=== PATIENT | female | born 1970 | race American Indian/Alaskan Native ===

== ENCOUNTER 2020-09-20 09:28 | Inpatient (IN) ==
[2020-09-20] MEDS ORDERED: 0.9 % SODIUM CHLORIDE 1,000 ML IV ONE ×2 (09:52→13:47)
[2020-09-20] MEDS ORDERED: INSULIN REGULAR, HUMAN 1 UNIT/0.01 ML UNIT IV ONE (10:03)
[2020-09-20 10:13] LABS: POC CO2 18 mmol/L (22-30); POC Chloride 96 mEq/L (96-108); POC Creatinine 0.7 mg/dL (0.6-1.2); POC Glucose, Random > 700 mg/dL; POC Hematocrit 48 % (36-48); POC Potassium 4.1 mEql/L (3.3-5.1); POC Sodium 131 mEq/L (133-145)
[2020-09-20] MEDS ORDERED: INSULIN REGULAR, HUMAN 50 UNIT in 0.9 % SODIUM CHLORIDE 99.5 ML IV SCH (10:30)
--- NOTE | 2020-09-20 10:41 | EKG ---
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 Measurements Intervals Blanding Rate: 92 P: 42 [place]: 140 QRS: 82 QRSD: 93 T: 7 QT: 349 QTc: 432 Interpretive Statements Sinus rhythm Baseline wander in lead(s) V2,V6 NO PRIOR TRACING FOR COMPARISON NORMAL TRACING Electronically Signed On 09-20-2020 10:40:46 PDT by Kevon Whalen M.D. /store/[email or web address]/[id number]
[2020-09-20 10:46] LABS: Basophils # (Auto) 0.08 K/mcL (0.00-0.20); Basophils % (Auto) 0.6 % (0.0-2.0); Eosinophils # (Auto) 0.19 K/mcL (0.00-0.70); Eosinophils % (Auto) 1.5 % (0.0-7.0); Hematocrit 45.7 % (36.0-48.0); Hemoglobin 15.3 g/dL (12.0-15.0); Lymphocytes # (Auto) 1.95 K/mcL (1.50-4.80); Lymphocytes % (Auto) 15.7 % (15.0-49.0); Mean Cell Volume 83.2 fL (80.0-100.0); Mean Corpuscular HGB Conc 33.5 g/dL (31.0-36.0); Mean Platelet Volume 11.4 fL (7.4-10.4); Monocytes # (Auto) 0.58 K/mcL (0.10-0.90); Monocytes % (Auto) 4.7 % (1.0-12.0); Neutrophils % (Auto) 77.5 % (38.0-78.0); Platelet Count 300 K/mcL (140-440); RBC 5.49 M/mcL (4.00-5.20); Red Cell Distribution Width 13.1 % (11.5-14.5); WBC 12.5 K/mcL (4.5-11.0)
--- NOTE | 2020-09-20 10:52 | XRay Report ---
CLINICAL INFORMATION: Hyperventalation COMPARISON: None. FINDINGS: Heart size, mediastinum and pulmonary vessels are normal. There is minor bibasilar atelectasis. No infiltrates or effusions. Bones soft tissues normal. IMPRESSION: Minor bibasilar atelectasis Interpreted and Authenticated by: Power Davey 09/20/20
--- NOTE | 2020-09-20 11:22 | Emergency Department Note ---
HPI General Chief complaint: Blood Sugar Problem Stated complaint: blood sugar problem Time Seen by Provider: 09/20/20 10:02 Source: patient, RN notes reviewed and old records reviewed Mode of arrival: ambulatory Limitations: no limitations History of Present Illness HPI Narrative: Narrative: A 50-year-old female noted to have high blood sugar. Patient states that she has been feeling poorly for the last couple of months with polyuria polydipsia dehydration anorexia and occasional blurry vision. She has no past medical history of diabetes does have a past medical history of ankylosing spondylolysis and she is on Remicade. She denies tobacco alcohol or drug abuse she denies fevers or chills she denies cough she denies chest pain she denies abdominal pain she denies hematuria dysuria positive frequency no bright red blood per rectum black tarry stools or diarrhea. MD Complaint: High blood sugar Onset (ago): month(s) (2) Severity: severe Consistency: constant Improves with: medication Associated symptoms: Reports headaches, loss of appetite, malaise, nausea/vomiting, shortness of breath and weakness; Denies confusion, chest pain, cough, diaphoresis, fever/chills, rash, seizure and syncope Treatments Prior to Arrival: none Related Data Home Medications Medication Instructions Recorded Confirmed infliximab 100 mg intravenous IV .q6w each 05/06/19 09/14/20 solution acetaminophen [Tylenol] 325 mg PO BID PRN 09/20/20 09/20/20 Allergies Allergy/AdvReac Type Severity Reaction Status Date / Time gabapentin Allergy Unknown Other Verified 09/14/20 08:21 meperidine [MEPERIDINE] AdvReac Intermediate Tachycardia Verified 09/14/20 08:21 Review of Systems ROS ROS Narrative: Narrative: Constitutional: Reports weakness and weight change; Denies fever and chills Eyes: Reports vision change ENT ED: Denies ear pain and throat pain Cardiovascular: Reports palpitations; Denies chest pain Respiratory: Denies shortness of breath and cough Gastrointestinal: Reports nausea; Denies abdominal pain and vomiting Genitourinary: Reports frequency; Denies dysuria Musculoskeletal: Denies back pain and joint swelling Integumentary: Denies rash and lesions Neurological: Reports headache; Denies weakness Psychiatric: Denies anxiety and depression Endocrine: Reports fatigue, polydipsia and polyuria; Denies heat or cold intolerance Hematological/Lymphatic: Denies easy bleeding and easy bruising Allergic/Immunologic: Denies urticaria PFSH Narrative Patient History Narrative: Narrative: Medical/Surgical/Family History All Active Problems (Updated 09/20/20 @ 11:28 by Jan Byrne MD) Atopic dermatitis (Chronic) Right knee pain (Chronic) Murmur (Chronic) Breast lump (Chronic) Ankylosing spondylitis (Acute) Celiac disease (Chronic) Pain radiating to neck (Chronic) Obesity (Chronic) Microscopic hematuria (Chronic) Constipation (Chronic) Acute lower respiratory infection (Chronic) Bacterial vaginosis (Chronic) Shoulder pain (Chronic) Fibromyositis (Chronic) Encounter for long-term current use of high risk medication (Acute) Osteoarthritis (Acute) Back Pain (Chronic) Elevated ALT measurement (Acute) Ankylosing spondylitis of site in spine (Acute) Encounter for long-term (current) use of NSAIDs (Acute) Moderate major depression (Chronic) Vitamin D deficiency (Chronic) Occult blood in stools (Chronic) Acute lower urinary tract infection (Chronic) Fatigue (Chronic) Muscle strain of right shoulder (Chronic) Vaginitis (Chronic) Prediabetes (Chronic) Skin nodule (Chronic) Insomnia (Chronic) Snoring (Chronic) Sore throat (Chronic) Thoracic back pain (Chronic) Sleep apnea (Chronic) Wheezing (Chronic) Hypersomnia (Chronic) Interstitial lung disease (Chronic) GERD (gastroesophageal reflux disease) (Chronic) Restrictive lung disease (Chronic) Diarrhea (Acute) Dyspnea (Chronic) Liver enzyme elevation (Acute) DKA (diabetic ketoacidoses) (Acute) Medical History (Updated 09/20/20 @ 11:28 by Jan Byrne MD) Acute lower respiratory infection Acute lower urinary tract infection Ankylosing spondylitis Ankylosing spondylitis of site in spine Atopic dermatitis Back Pain Bacterial vaginosis Breast lump bx neg Celiac disease Constipation Elevated ALT measurement Encounter for long-term (current) use of NSAIDs Encounter for long-term current use of high risk medication Fatigue Fibromyositis GERD (gastroesophageal reflux disease) Hypersomnia Insomnia Interstitial lung disease Liver enzyme elevation Microscopic hematuria Moderate major depression Murmur Muscle strain of right shoulder Obesity Occult blood in stools Osteoarthritis Pain radiating to neck Prediabetes Restrictive lung disease Right knee pain Shoulder pain Skin nodule Sleep apnea Snoring Sore throat Thoracic back pain Vaginitis Vitamin D deficiency Wheezing Surgical History History of total left hip replacement Dr. Denson Hx of arthroscopic knee surgery Hx of breast biopsy Hx of section Hx of cholecystectomy Hx of colonoscopy Hx of esophagogastroduodenoscopy Hx of laparoscopy tubal block laparoscopy Family History Grandfather Diabetes mellitus maternal grandmother Malignant neoplasm maternal grandfather Malignant neoplasm Social History Smoking Status: Never smoker Alcohol Intake Frequency: holiday/special occasion only Exam Narrative Narrative: Narrative: General Limitations: no limitations General appearance: Present alert and in no apparent distress Head Head: Present atraumatic, normocephalic and normal inspection Eye Eye: Present normal appearance, PERRL and EOMI; Absent scleral icterus and conjunctival injection ENT ENT: Present normal exam, normal oropharynx and mucous membranes dry Neck Neck: Present normal inspection, full ROM and trachea midline; Absent tenderness, lymphadenopathy and thyromegaly Chest Chest: Present normal inspection and symmetric chest wall rise; Absent tendernes s Respiratory Respiratory: Present normal lung sounds bilaterally; Absent respiratory distress, wheezes, stridor, accessory muscle use and prolonged expiratory phase Cardiovascular Cardiovascular: Present regular rate and normal rhythm; Absent systolic murmur and diastolic murmur Adbominal Abdominal: Present soft; Absent distention, tenderness, guarding, rebound, rigidity, organomegaly and mass Extremities Extremities: Present normal inspection and full ROM; Absent tenderness, normal capillary refill, pedal edema, pretibial edema and calf tenderness Back Back: Present normal inspection and full ROM; Absent tenderness, CVA tenderness (R), CVA tenderness (L) and spinous process tenderness Neurological Neurological: Present alert and oriented X3 Psychiatric Psychiatric: Present normal affect and normal mood Skin Skin: Present warm (WNL) and dry Course Vital Signs Vital signs: Vital Signs Temperature 97.2 F 09/20/20 09:29 Pulse Rate 101 H 09/20/20 09:29 Respiratory Rate 22 09/20/20 09:29 Blood Pressure 133/74 09/20/20 09:29 Pulse Oximetry (%) 97 09/20/20 09:29 Temperature 97.2 F 09/20/20 09:29 Pulse Rate 102 H 09/20/20 10:49 Respiratory Rate 12 09/20/20 10:49 Blood Pressure 134/77 09/20/20 10:58 Pulse Oximetry (%) 96 09/20/20 10:49 MDM MDM Narrative Medical decision making narrative: Narrative: 50-year-old female with ankylosing spondylitis on Remicade with DKA. Patient received IV normal saline IV. Differential Diagnosis Differential Diagnosis: DKA, hyperosmolar, hyperglycemia, infection, Medical Records Medical records reviewed: Yes I reviewed the patient's medical records. Lab Data Lab results reviewed: Yes I reviewed the patient's lab results. Result diagrams: 09/20/20 10:00 09/20/20 10:00 Labs: Lab Results 09/20/20 09/20/20 Range/Units 10:00 10:00 WBC 12.5 H (4.5-11.0) K/mcL RBC 5.49 H (4.00-5.20) M/mcL Hgb 15.3 H (12.0-15.0) g/dL Hct 45.7 (36.0-48.0) % POC Hct 48 (36-48) % MCV 83.2 (80.0-100.0) fL MCH 27.9 (26.0-34.0) pg MCHC 33.5 (31.0-36.0) g/dL RDW 13.1 (11.5-14.5) % Plt Count 300 (140-440) K/mcL MPV 11.4 H (7.4-10.4) fL Neut % (Auto) 77.5 (38.0-78.0) % Lymph % (Auto) 15.7 (15.0-49.0) % [place] % (Auto) 4.7 (1.0-12.0) % Eos % (Auto) 1.5 (0.0-7.0) % Baso % (Auto) 0.6 (0.0-2.0) % Lymph # (Auto) 1.95 (1.50-4.80) K/mcL [place] # (Auto) 0.58 (0.10-0.90) K/mcL Eos # (Auto) 0.19 (0.00-0.70) K/mcL Baso # (Auto) 0.08 (0.00-0.20) K/mcL Absolute Neutrophils 9.65 H (1.80-8.00) K/mcL POC Sodium 131 L (133-145) mEq/L POC Potassium 4.1 (3.3-5.1) mEql/L POC Chloride 96 (96-108) mEq/L POC Total CO2 18 L (22-30) mmol/L POC Creatinine 0.7 (0.6-1.2) mg/dL POC Glucose > 700 H* mg/dL POC WB Ioniz Calcium 1.20 (1.16-1.32) mmEq/L ED POC Tests ED POC Tests: HCG POC Results Negative Radiology Data Radiology results reviewed: Yes I reviewed the patient's radiology results. Radiology results narrative: Chest x-ray with basilar atelectasis EKG Data EKG #1: EKG attestation: Yes I reviewed and interpreted this EKG. EKG shows normal: sinus rhythm Rate: normal (92) Rhythm: NSR [place]/QRS: normal Heart block present: None ST segment elevation in: None ST segment depression in: None Q waves: None T wave inversions noted in: None Hyperacute T waves: None QTc: normal QRS morphology: Present normal Interpretation: normal EKG Pulse Oximetry Data Pulse Ox %: 96 Interpretation: 96% on room air within normal limits. CC TIME Critical Care Time Critical Care Time: Yes Total Critical Care Time: 50 Attestation: Approximately [#50] minutes of critical care time was used in order to assess and manage the high probability of imminent or life threatening deterioration to [DKA with hyperglycemia affecting electrolytes and kidney function.] which required my highest level of preparedness and interventions with frequent patient assessments. This time is excluding time spent on separately billable procedures. Discharge Plan Patient/Caregiver Discharge Instructions Pt seen by DISCHARGE RN/PA only: No Clinical Impression: DKA (diabetic ketoacidoses) Patient Disposition: Xfer As Inpt ([facility] [place]) Condition: Serious Follow up with: Ivelisse Husain MD [Primary Care Provider] - Prescriptions: No Action Remicade 100 mg recon soln 100 mg IV .q6w RF: 0 acetaminophen [Tylenol] 325 mg Capsule 325 mg PO BID PRN (Reason: Pain) RF: 0
[2020-09-20 11:26] LABS: Blood Urea Nitrogen 10 mg/dL (6-20); Calcium 9.3 mg/dL (8.6-10.4); Carbon Dioxide 16 mmol/L (22-30); Chloride 88 mmol/L (96-108); Glomerular Filtration Rate 66; Glucose 710 mg/dL (70-105)
[2020-09-20] MEDS ORDERED: LORazepam 2 MG/ML VIAL IV ONE (12:08)
[2020-09-20 12:29] LABS: POC Blood Urea Nitrogen 8 mg/dL (6-20); POC CO2 16 mmol/L (22-30); POC Calcium, Ionized 1.16 mmEq/L (1.16-1.32); POC Chloride 103 mEq/L (96-108); POC Creatinine 0.6 mg/dL (0.6-1.2); POC Glucose, Random 425 mg/dL (70-105); POC Hematocrit 45 % (36-48); POC Potassium 3.8 mEql/L (3.3-5.1); POC Sodium 137 mEq/L (133-145)
--- NOTE | 2020-09-20 13:41 | Internal Med History&Physical ---
HPI History of Present Illness Patient information: Note initiated : 09/20/20 at 1:27 pm Service Date, if different from initiated Date: [] Patient: Amalia Harris a 50 y/o F admitted on for blood sugar problem. Chief Complaint: [] History of present illness: Ms. Harris is a 50 year old female with a history of ankylosing spondylitis on Remicade who presents to the emergency department for polydipsia, polyuria, dry mouth and generally feeling unwell for about 2 weeks. In the ED, the patient was found to have hyperglycemia with a serum glucose of 710. The patient also had metabolic acidosis with an anion gap of 23. She was given IV fluids and started on an insulin drip. The hospitalist were asked to admit the patient for further management. Further review showed that the patient has a pubic area of tenderness concerning for possible underlying abscess, she also has thrush. Patient denies fevers chills, no chest pain, no shortness of breath. EKG shows normal sinus rhythm. Chest x-ray does not show any infiltrates. Review of systems Constitutional: Positive for polydipsia, fatigue, and weight loss Eyes: no vision changes or pain Cardiovascular: no chest pain, no palpitations Respiratory: no cough or dyspnea Gastrointestinal: no abdominal pain, no diarrhea a Genitourinary: Positive for polyuria, no dysuria or difficulty voiding Musculoskeletal: no arthralgia or myalgia Integumentary: no skin lesion or wound Neurological: no focal weakness or numbness Psychiatric: no anxiety or depression Physical exam Head: Atraumatic, normal inspection. Eyes: normal appearance, no scleral icterus. Neck: full ROM Oral: Positive for thrush. Respiratory: no respiratory distress. Cardiovascular: normal rate and rhythm, S1, S2. GI/Abdominal: Positive for suprapubic erythema and tenderness, mild fluctuance noted. Extremities: full range of motion, nontender. Neurological: CN II-XII intact, intact motor, intact sensation. Psychiatric: normal mood. Skin: warm, normal color PFSH PFSH All Active Problems (Updated 09/20/20 @ 11:28 by Jan Byrne MD) Atopic dermatitis (Chronic) Right knee pain (Chronic) Murmur (Chronic) Breast lump (Chronic) Ankylosing spondylitis (Acute) Celiac disease (Chronic) Pain radiating to neck (Chronic) Obesity (Chronic) Microscopic hematuria (Chronic) Constipation (Chronic) Acute lower respiratory infection (Chronic) Bacterial vaginosis (Chronic) Shoulder pain (Chronic) Fibromyositis (Chronic) Encounter for long-term current use of high risk medication (Acute) Osteoarthritis (Acute) Back Pain (Chronic) Elevated ALT measurement (Acute) Ankylosing spondylitis of site in spine (Acute) Encounter for long-term (current) use of NSAIDs (Acute) Moderate major depression (Chronic) Vitamin D deficiency (Chronic) Occult blood in stools (Chronic) Acute lower urinary tract infection (Chronic) Fatigue (Chronic) Muscle strain of right shoulder (Chronic) Vaginitis (Chronic) Prediabetes (Chronic) Skin nodule (Chronic) Insomnia (Chronic) Snoring (Chronic) Sore throat (Chronic) Thoracic back pain (Chronic) Sleep apnea (Chronic) Wheezing (Chronic) Hypersomnia (Chronic) Interstitial lung disease (Chronic) GERD (gastroesophageal reflux disease) (Chronic) Restrictive lung disease (Chronic) Diarrhea (Acute) Dyspnea (Chronic) Liver enzyme elevation (Acute) DKA (diabetic ketoacidoses) (Acute) Medical History (Updated 09/20/20 @ 11:28 by Jan Byrne MD) Acute lower respiratory infection Acute lower urinary tract infection Ankylosing spondylitis Ankylosing spondylitis of site in spine Atopic dermatitis Back Pain Bacterial vaginosis Breast lump bx neg Celiac disease Constipation Elevated ALT measurement Encounter for long-term (current) use of NSAIDs Encounter for long-term current use of high risk medication Fatigue Fibromyositis GERD (gastroesophageal reflux disease) Hypersomnia Insomnia Interstitial lung disease Liver enzyme elevation Microscopic hematuria Moderate major depression Murmur Muscle strain of right shoulder Obesity Occult blood in stools Osteoarthritis Pain radiating to neck Prediabetes Restrictive lung disease Right knee pain Shoulder pain Skin nodule Sleep apnea Snoring Sore throat Thoracic back pain Vaginitis Vitamin D deficiency Wheezing Surgical History History of total left hip replacement Dr. Denson Hx of arthroscopic knee surgery Hx of breast biopsy Hx of section Hx of cholecystectomy Hx of colonoscopy Hx of esophagogastroduodenoscopy Hx of laparoscopy tubal block laparoscopy Family History Grandfather Diabetes mellitus maternal grandmother Malignant neoplasm maternal grandfather Malignant neoplasm Social History marital status: alcohol intake frequency: holiday/special occasion only MEDS/ALLERGIES Home Medications and Allergies Home Medications Medication Instructions Recorded Confirmed Type infliximab 100 mg intravenous 100 mg IV .q6w each 05/06/19 09/20/20 History solution acetaminophen [Tylenol] 325 mg PO BID PRN 09/20/20 09/20/20 History Allergies Allergy/AdvReac Type Severity Reaction Status Date / Time gabapentin Allergy Unknown Other Verified 09/14/20 08:21 meperidine [MEPERIDINE] AdvReac Intermediate Tachycardia Verified 09/14/20 08:21 EXAM Constitutional Vitals: Temp Pulse Resp BP Pulse Ox 97.2 F 89 20 124/74 96 09/20/20 09:29 09/20/20 11:46 09/20/20 12:46 09/20/20 12:46 09/20/20 11:46 DATA Data Completed and Pending Labs: Labs from last 24 hours 09/20/20 09/20/20 09/20/20 12:23 12:23 10:30 WBC RBC Hgb Hct POC Hct 45 MCV MCH MCHC RDW Plt Count MPV Neut % (Auto) Lymph % (Auto) [place] % (Auto) Eos % (Auto) Baso % (Auto) Lymph # (Auto) [place] # (Auto) Eos # (Auto) Baso # (Auto) Absolute Neutrophils VBG Lactic Acid 1.2 POC Sodium 137 Sodium POC Potassium 3.8 Potassium POC Chloride 103 Chloride Carbon Dioxide POC Total CO2 16 L Anion Gap POC BUN 8 BUN Creatinine POC Creatinine 0.6 GFR Calculation Glucose POC Glucose 425 H Calcium POC WB Ioniz Calcium 1.16 Beta-Hydroxybutyrate Pending 09/20/20 09/20/20 10:00 10:00 WBC 12.5 H RBC 5.49 H Hgb 15.3 H Hct 45.7 POC Hct 48 MCV 83.2 MCH 27.9 MCHC 33.5 RDW 13.1 Plt Count 300 MPV 11.4 H Neut % (Auto) 77.5 Lymph % (Auto) 15.7 [place] % (Auto) 4.7 Eos % (Auto) 1.5 Baso % (Auto) 0.6 Lymph # (Auto) 1.95 [place] # (Auto) 0.58 Eos # (Auto) 0.19 Baso # (Auto) 0.08 Absolute Neutrophils 9.65 H VBG Lactic Acid POC Sodium 131 L Sodium 127 L POC Potassium 4.1 Potassium 4.2 POC Chloride 96 Chloride 88 L Carbon Dioxide 16 L POC Total CO2 18 L Anion Gap 23.0 H POC BUN Pending BUN 10 Creatinine 1.0 POC Creatinine 0.7 GFR Calculation 66 Glucose 710 H* POC Glucose > 700 H* Calcium 9.3 POC WB Ioniz Calcium 1.20 Beta-Hydroxybutyrate A/P Narrative A/P Narrative: Assessment: 50-year-old female with history of ankylosing spondylitis on Remicade admitted for hyperglycemia and anion gap metabolic acidosis concerning for DKA. #Diabetic ketoacidosis versus less likely hyperosmolar hyperglycemic state #Anion gap metabolic acidosis #Diabetes mellitus probably type II, new diagnosis #Suprapubic tenderness possible cellulitis -concern for underlying abscess #Oral pharyngeal candidiasis #Hemoconcentration #Ankylosing spondylitis on Remicade #Obesity BMI 34 Plan -Insulin infusion, glucose POCT, BMP Q 4 hours. -IV fluid with NS for now, transition to D5 half NS if acidosis does not resolve by the time glucose is less than 200. -Blood cultures -UA w/ reflex to culture. -Beta hydroxybutyrate -Lactic acid -CRP and procalcitonin -Hemoglobin A1C -Low threshold for antibiotic for possible cellulitis/abscess. -Suprapubic ultrasound to evaluate for abscess. -Clotrimazole troches for thrush. -DVT ppx: lovenox SQ -Code status: Full -Disposition: home with PCP follow up for new diagnosis of diabetes mellitus. Time Spent With Patient Time: Total time spent is greater than 50% in coordination of care (as documented) at patient's floor/unit and/or counseling patient: QUALITY Stroke Symptom Onset Unknown: No
[2020-09-20] MEDS ORDERED: 0.9 % SODIUM CHLORIDE 1,000 ML IV SCH (13:47)
[2020-09-20] MEDS ORDERED: ONDANSETRON 4 MG/2 ML VIAL IV PRN (13:47)
[2020-09-20] MEDS ORDERED: LACTULOSE 20 GM/30 ML ORAL.SOL PO PRN (13:47)
[2020-09-20] MEDS ORDERED: SENNOSIDES 1 TABLET PO PRN (13:47)
[2020-09-20] MEDS ORDERED: ACETAMINOPHEN 325 MG TABLET PO PRN (13:49)
[2020-09-20] MEDS: INSULIN REGULAR, HUMAN 50 UNIT in 0.9 % SODIUM CHLORIDE 99.5 ML IV SCH ×2 (14:41→22:59)
[2020-09-20] MEDS: 0.9 % SODIUM CHLORIDE 10 ML SYRINGE IV SCH ×2 (14:53→22:18)
[2020-09-20] MEDS: CLOTRIMAZOLE 10 MG TROCHE PO SCH ×2 (15:03→17:45)
[2020-09-20 15:38] LABS: Blood Urea Nitrogen 7 mg/dL (6-20); Calcium 8.6 mg/dL (8.6-10.4); Carbon Dioxide 16 mmol/L (22-30); Chloride 100 mmol/L (96-108); Glomerular Filtration Rate 87; Glucose 362 mg/dL (70-105)
[2020-09-20 15:51] LABS: Estimated Average Glucose(eAG) 338 mg/dL; Hemoglobin A1C 13.4 % Hgb (4.0-6.0)
--- NOTE | 2020-09-20 16:26 | Ultrasound Report ---
CLINICAL INFORMATION: evaluate for abscess in pubic area COMPARISON: None. FINDINGS: A 1.2 cm small complex fluid collection is seen in the subcutaneous fat within the suprapubic region. This could represent a small abscess. IMPRESSION: 1.2 cm complex fluid collection in the suprapubic region corresponding to palpable lump. It may represent a small abscess Interpreted and Authenticated by: Power Davey 09/20/20
[2020-09-20 16:47] LABS: Appearance,Urine HAZY (Clear); Bilirubin,Urine Negative (Negative); Color,Urine YELLOW; Culture Indicated,Urine yes; Glucose,Urine (UA) >=500 mg/dL (Negative); Ketones,Urine 80 mg/dL (Negative); Leukocyte Esterase,Urine 500 /ug (Negative); Mucus,Urine FEW /hpf; Nitrate,Urine Negative (Negative); Protein,Urine Negative (Negative); Specific Gravity,Urine 1.029 (1.000-1.035); Urine Blood 0.03 mg/dL (Negative); Urine RBC 22 /hpf (0-3); Urine Squamous Epithelial Cell < 1 /hpf (0-4); Urine WBC 31 /hpf (0-4); Urobilinogen,Urine Negative
[2020-09-20] MEDS ORDERED: DEXTROSE 5%-1/2NS 1,000 ML IV SCH (18:15)
--- NOTE | 2020-09-20 20:14 | Procedure Note ---
PROC Abscess I/D Consent obtained: verbal consent and written consent Date of Procedure: 09/20/20 Site: other (pubic ) Anesthetic used: lidocaine 1% Technique: needle aspiration Amount of fluid: 0.5 Packing used?: none
[2020-09-20 21:05] LABS: Blood Urea Nitrogen 6 mg/dL (6-20); Calcium 8.4 mg/dL (8.6-10.4); Carbon Dioxide 18 mmol/L (22-30); Chloride 104 mmol/L (96-108); Glomerular Filtration Rate 107; Glucose 220 mg/dL (70-105)
[2020-09-20] MEDS: SULFAMETHOXAZOLE/TRIMETHOPRIM 1 TABLET PO SCH (21:37)
[2020-09-20] MEDS: NYSTATIN 500,000 UNITS/5 ML ORAL.SUSP SSW SCH (21:37)
[2020-09-20] MEDS: INSULIN GLARGINE, HUMAN 1 UNIT/0.01 ML SQ SCH (21:37)
[2020-09-20] MEDS ORDERED: INSULIN REGULAR, HUMAN 1 UNIT/0.01 ML UNIT ONE (22:24)
[2020-09-20 23:43] LABS: POC Blood Urea Nitrogen 10 mg/dL (6-20)
[2020-09-21 00:30] LABS: Blood Urea Nitrogen 6 mg/dL (6-20); Calcium 8.2 mg/dL (8.6-10.4); Carbon Dioxide 19 mmol/L (22-30); Chloride 106 mmol/L (96-108); Glomerular Filtration Rate 102; Glucose 147 mg/dL (70-105)
[2020-09-21] MEDS ORDERED: DEXTROSE 5%-1/2NS 1,000 ML IV SCH (02:15)
[2020-09-21 03:23] LABS: Blood Urea Nitrogen 6 mg/dL (6-20); Calcium 7.9 mg/dL (8.6-10.4); Carbon Dioxide 20 mmol/L (22-30); Chloride 103 mmol/L (96-108); Glomerular Filtration Rate 107; Glucose 200 mg/dL (70-105)
[2020-09-21] MEDS: INSULIN LISPRO 1 UNIT/0.01 ML UNIT SQ SCH ×7 (04:07→20:31)
[2020-09-21] MEDS ORDERED: INSULIN LISPRO 1 UNIT/0.01 ML UNIT SQ ONE ×2 (04:08→05:58)
[2020-09-21] MEDS: 0.9 % SODIUM CHLORIDE 10 ML SYRINGE IV SCH ×3 (05:58→22:39)
[2020-09-21 07:08] LABS: Hematocrit 38.8 % (36.0-48.0); Hemoglobin 12.8 g/dL (12.0-15.0); Mean Cell Volume 82.6 fL (80.0-100.0); Mean Platelet Volume 11.1 fL (7.4-10.4); Platelet Count 220 K/mcL (140-440); Red Cell Distribution Width 13.1 % (11.5-14.5); WBC 13.3 K/mcL (4.5-11.0)
[2020-09-21 07:40] LABS: Phosphorous 2.3 mg/dL (2.5-4.5)
[2020-09-21 07:42] LABS: Blood Urea Nitrogen 5 mg/dL (6-20); Calcium 7.9 mg/dL (8.6-10.4); Carbon Dioxide 16 mmol/L (22-30); Chloride 98 mmol/L (96-108); Glomerular Filtration Rate 107; Glucose 296 mg/dL (70-105)
[2020-09-21] MEDS: NYSTATIN 500,000 UNITS/5 ML ORAL.SUSP SSW SCH (08:00)
[2020-09-21] MEDS: POTASSIUM CHLORIDE 20 MEQ TABLET PO SCH ×2 (08:01→17:24)
[2020-09-21] MEDS: ENOXAPARIN 40 MG/0.4 ML SYRINGE SQ SCH (08:01)
[2020-09-21] MEDS: SULFAMETHOXAZOLE/TRIMETHOPRIM 1 TABLET PO SCH (08:01)
[2020-09-21] MEDS ORDERED: VANCOMYCIN PER PHARMACY IV SCH (08:01)
--- NOTE | 2020-09-21 08:17 | Internal Med Progress Note ---
SUBJECTIVE Subjective Patient information: Note initiated : 09/21/20 at 8:08 am Service Date, if different from initiated Date: [] Patient: Amalia Harris a 50 y/o F admitted on 09/20/20 for blood sugar problem. Chief Complaint: [] Interval history: Ms. Harris is a 50 year old female with a history of ankylosing spondylitis on Remicade who presents to the emergency department for polydipsia, polyuria, dry mouth and generally feeling unwell for about 2 weeks. In the ED, the patient was found to have hyperglycemia with a serum glucose of 710. The patient also had metabolic acidosis with an anion gap of 23. She was given IV fluids and started on an insulin drip. The hospitalist were asked to admit the patient for further management. Further review showed that the patient has a pubic area of tenderness concerning for possible underlying abscess, she also has thrush. Patient denies fevers chills, no chest pain, no shortness of breath. EKG shows normal sinus rhythm. Chest x-ray does not show any infiltrates. 09/21 Overall improvement, anion gap closed overnight, transitioned off insulin drip to Lantus and SSI-medium. Last night aspirated the pubic abscess, gram stain shows gram positive cocci in pairs and chains and moderate budding yeast with pseudohyphae. Now on Vancomycin per pharmacy and IV Diflucan due to immunosuppre ssed status. Discussed with Dr. Otto, he will see the patient for the abscess. Physical exam Head: Atraumatic, normal inspection. Eyes: normal appearance, no scleral icterus. Neck: full ROM Oral: Positive for thrush. Respiratory: no respiratory distress. Cardiovascular: normal rate and rhythm, S1, S2. GI/Abdominal: Positive for suprapubic erythema and tenderness, mild fluctuance noted. Extremities: full range of motion, nontender. Neurological: CN II-XII intact, intact motor, intact sensation. Psychiatric: normal mood. Skin: warm, normal color Constitutional Vitals: Vital Signs Temp Pulse Resp BP Pulse Ox 97.6 F 88 19 123/69 96 09/21/20 04:01 09/21/20 07:08 09/21/20 07:08 09/21/20 07:01 09/21/20 07:08 Period Temp Pulse Resp BP Sys/Quintana Pulse Ox Last 24 Hr 97.2 F-97.8 F 81-105 12-27 94-137/52-78 94-100 Intake and Output 09/20/20 09/21/20 09/21/20 21:59 05:59 13:59 Intake Total 2057 819 Output Total 475 550 Balance 1582 269 Weight 92.215 kg Intake & Output: Intake & Output 09/20/20 09/21/20 09/21/20 21:59 05:59 13:59 Intake Total 7 819 Output Total 475 550 Balance 1582 269 Weight 92.215 kg Intake: IV 1617 819 Sodium Chloride 0.9% 1,000 ml @ 1306 125 mls/hr IV .Q8H JACQUE Rx#: [id number] Dextrose 5%-1/2Ns IV Solution 1 238 762 ,000 ml @ 100 mls/hr IV .Q10H JACQUE Rx#:[id number] HumuLIN R 50 UNIT In Sodium 73 57 Chloride 0.9% 99.5 ml @ 4 UNIT/ HR 8 mls/hr IV DUR JACQUE Rx#: [id number] Oral 440 Output: Void Amount 475 550 Other: Meal Dinner Percent of Meal Consumed 50% Feeding Ability Independent Urine Appearance Cloudy Urine Color Dark Yellow Dark Yellow Urine Odor Normal # Voids 1 OBJ DATA Labs CBC & Chem 7: 09/21/20 05:22 09/21/20 05:23 Labs: Abnormal Lab Results 09/21/20 09/21/20 09/21/20 05:23 05:23 05:22 WBC 13.3 H RBC Hgb MPV 11.1 H Absolute Neutrophils POC Sodium Sodium 128 L Potassium Chloride Carbon Dioxide 16 L POC Total CO2 Anion Gap BUN 5 L Glucose 296 H POC Glucose Hemoglobin A1c Calcium 7.9 L Phosphorus 2.3 L C-Reactive Protein Beta-Hydroxybutyrate Urine Appearance Urine Glucose (UA) Urine Ketones Ur Leukocyte Esterase Urine RBC Urine WBC Urine Mucus 09/21/20 09/20/20 09/20/20 01:52 21:20 17:53 WBC RBC Hgb MPV Absolute Neutrophils POC Sodium Sodium 132 L Potassium 3.2 L Chloride Carbon Dioxide 20 L 19 L 18 L POC Total CO2 Anion Gap BUN Glucose 200 H 147 H 220 H POC Glucose Hemoglobin A1c Calcium 7.9 L 8.2 L 8.4 L Phosphorus C-Reactive Protein Beta-Hydroxybutyrate Urine Appearance Urine Glucose (UA) Urine Ketones Ur Leukocyte Esterase Urine RBC Urine WBC Urine Mucus 09/20/20 09/20/20 09/20/20 15:31 14:30 12:23 WBC RBC Hgb MPV Absolute Neutrophils POC Sodium Sodium Potassium Chloride Carbon Dioxide 16 L POC Total CO2 Anion Gap 19.0 H BUN Glucose 362 H POC Glucose Hemoglobin A1c 13.4 H Calcium Phosphorus C-Reactive Protein 3.70 H Beta-Hydroxybutyrate 5.37 H Urine Appearance Hazy A Urine Glucose (UA) >=500 A Urine Ketones 80 A Ur Leukocyte Esterase 500 A Urine RBC 22 H Urine WBC 31 H Urine Mucus Few A 09/20/20 09/20/20 09/20/20 12:23 10:00 10:00 WBC 12.5 H RBC 5.49 H Hgb 15.3 H MPV 11.4 H Absolute Neutrophils 9.65 H POC Sodium 131 L Sodium 127 L Potassium Chloride 88 L Carbon Dioxide 16 L POC Total CO2 16 L 18 L Anion Gap 23.0 H BUN Glucose 710 H* POC Glucose 425 H > 700 H* Hemoglobin A1c Calcium Phosphorus C-Reactive Protein Beta-Hydroxybutyrate Urine Appearance Urine Glucose (UA) Urine Ketones Ur Leukocyte Esterase Urine RBC Urine WBC Urine Mucus Meds: Medications Acetaminophen (Acetaminophen 325 Mg Tablet) 325 mg PO BIDP PRN PRN Reason: Pain Diagnostic Test (Pha) (Accu-Chek 1 Each Strip) 1 each FS Q2 [facility] Last Admin: 09/21/20 07:43 Dose: 1 each Documented by: Enoxaparin Sodium (Enoxaparin 40 Mg/0.4 Ml Syringe) 40 mg SQ DAILY [facility] Last Admin: 09/21/20 08:01 Dose: 40 mg Documented by: Fluconazole (Diflucan) 400 mg in 200 mls @ 100 mls/hr IV Q24H [facility] Insulin Glargine (Insulin Glargine, Human 1 Unit/0.01 Ml) 10 unit SQ HS [facility] Last Admin: 09/20/20 21:37 Dose: 10 unit Documented by: Insulin Human Lispro (Insulin Lispro 1 Unit/0.01 Ml Unit) 0 unit SQ Q2 [facility]; Protocol Last Admin: 09/21/20 08:01 Dose: 6 unit Documented by: Lactulose (Lactulose 20 Gm/30 Ml Oral.Laurel) 10 gm PO DAILYP PRN PRN Reason: Constipation Nystatin (Nystatin 500,000 Units/5 Ml Oral.Susp) 500,000 units SSW QID [facility] Last Admin: 09/21/20 08:00 Dose: 500,000 units Documented by: Ondansetron HCl (Ondansetron 4 Mg/2 Ml Vial) 4 mg IV Q4HP PRN; Protocol PRN Reason: Nausea And Vomiting Potassium Chloride (Potassium Chloride 20 Meq Tablet) 40 meq PO BIDCC JACQUE Stop: 09/21/20 17:31 Last Admin: 09/21/20 08:01 Dose: 40 meq Documented by: Senna (Sennosides 1 Tablet) 2 tab PO HSP PRN PRN Reason: Constipation Sodium Chloride (0.9 % Sodium Chloride 10 Ml Syringe) 10 ml IV Q8 [facility] Last Admin: 09/21/20 05:58 Dose: 10 ml Documented by: Vancomycin HCl (Vancomycin Per Pharmacy) 1 order IV ONCE ONE; Protocol Stop: 09/21/20 08:02 A/P Narrative A/P Narrative: Assessment: 50-year-old female with history of ankylosing spondylitis on Remicade admitted for hyperglycemia and anion gap metabolic acidosis concerning for DKA. #Diabetes mellitus probably type II (new diagnosis) -Hgb A1C 13.4 #Resolved diabetic ketoacidosis #Pubic abscess -gm stain: gram positive cocci in pairs and chains and yeast -1.2 cm complex fluid collection on US #Oral pharyngeal candidiasis #Ankylosing spondylitis on Remicade #Immunosuppression d/t Remicade and poorly controlled DM #Obesity BMI 34 Plan -Lantus and SSI-med, add prandial insulin after response to SSI established. Likely increase Lantus before discharge with follow up and eventually could possibly transition to oral DM therapy if patient seems more likely to have type 2 than type 1 diabetes mellitus. -IV fluid with NS. -Monitor glucose POCT and anion gap for recurrent DKA off insulin drip. -Follow aspirate culture and blood cultures -Vancomycin IV per Rx and Diflucan for abscess -Dr. Otto consulted for abscess -asthma educator consult -Consistent carb diet -LISA and Islet cell antibodies, (likely send out labs) for possible type 1 DM d/t DKA however body habitus suggests type 2 DM. -DVT ppx: lovenox SQ -Code status: Full -Disposition: home on basal/bolus insulin regimen with PCP follow up for new diagnosis of diabetes mellitus, follow up autoantibodies. Time Spent With Patient Time: Total time spent is greater than 50% in coordination of care (as documented) at patient's floor/unit and/or counseling patient: QUALITY Stroke Symptom Onset Unknown: No
[2020-09-21 08:50] LABS: Band Neutrophils % 10 % (0-10); Basophils % (Manual) 1 % (0-2); Lymphocytes % 15 % (15-49); Monocytes % (Manual) 4 % (1-12); Platelet Estimate NORMAL (Normal); RBC Morphology NORMAL (Normal); Segmented Neutrophils % 70 % (38-78)
[2020-09-21] MEDS: VANCOMYCIN 1,500 MG in 0.9 % SODIUM CHLORIDE 500 ML IV SCH ×2 (09:01→20:30)
[2020-09-21] MEDS: FLUCONAZOLE 400 MG/200 ML BAG IV SCH (09:01)
[2020-09-21] MEDS: 0.9 % SODIUM CHLORIDE 1,000 ML IV SCH ×2 (10:01→23:59)
--- NOTE | 2020-09-21 10:29 | General Surgery Consult Note ---
HPI Data of Consult Consult date: 09/21/20 Primary Care Provider: Ivelisse Husain Consult Narrative Chief complaint: Uncontrolled diabetes, hyperosmolar state. CSSSI Supra pubic folliculitis Reason for consult: Evaluate for skin infection treatment and follow up History of present illness: This is a 50/F with h/o Ankylosing spondylitis, immune suppressed with Remicade, presented to ER with above problems. Admitted to ICU and treated for metabolic problems and with IV antibiotics for CSSSI. Patient DENIES any recent h/o shaving pubic hair, urinary or GI symptoms. cc:: CC: Reginald Rothman MD Respiratory Additional comments: Restrictive lung disease. Under care of Dr. Costello and Sendy Romano [facility] Gastrointestinal Additional comments: H/O GERD Integumentary Additional comments: Ankylosing Spondylitis. Treated with Remicade and muscle relaxants. Dr. Grant Berg. [facility] PFS All Active Problems Atopic dermatitis (Chronic) Right knee pain (Chronic) Murmur (Chronic) Breast lump (Chronic) Ankylosing spondylitis (Acute) Celiac disease (Chronic) Pain radiating to neck (Chronic) Obesity (Chronic) Microscopic hematuria (Chronic) Constipation (Chronic) Acute lower respiratory infection (Chronic) Bacterial vaginosis (Chronic) Shoulder pain (Chronic) Fibromyositis (Chronic) Encounter for long-term current use of high risk medication (Acute) Osteoarthritis (Acute) Back Pain (Chronic) Elevated ALT measurement (Acute) Ankylosing spondylitis of site in spine (Acute) Encounter for long-term (current) use of NSAIDs (Acute) Moderate major depression (Chronic) Vitamin D deficiency (Chronic) Occult blood in stools (Chronic) Acute lower urinary tract infection (Chronic) Fatigue (Chronic) Muscle strain of right shoulder (Chronic) Vaginitis (Chronic) Prediabetes (Chronic) Skin nodule (Chronic) Insomnia (Chronic) Snoring (Chronic) Sore throat (Chronic) Thoracic back pain (Chronic) Sleep apnea (Chronic) Wheezing (Chronic) Hypersomnia (Chronic) Interstitial lung disease (Chronic) GERD (gastroesophageal reflux disease) (Chronic) Restrictive lung disease (Chronic) Diarrhea (Acute) Dyspnea (Chronic) Liver enzyme elevation (Acute) DKA (diabetic ketoacidoses) (Acute) Medical History Acute lower respiratory infection Acute lower urinary tract infection Ankylosing spondylitis Ankylosing spondylitis of site in spine Atopic dermatitis Back Pain Bacterial vaginosis Breast lump bx neg Celiac disease Constipation Elevated ALT measurement Encounter for long-term (current) use of NSAIDs Encounter for long-term current use of high risk medication Fatigue Fibromyositis GERD (gastroesophageal reflux disease) Hypersomnia Insomnia Interstitial lung disease Liver enzyme elevation Microscopic hematuria Moderate major depression Murmur Muscle strain of right shoulder Obesity Occult blood in stools Osteoarthritis Pain radiating to neck Prediabetes Restrictive lung disease Right knee pain Shoulder pain Skin nodule Sleep apnea Snoring Sore throat Thoracic back pain Vaginitis Vitamin D deficiency Wheezing Surgical History History of total left hip replacement Dr. Denson Hx of arthroscopic knee surgery Hx of breast biopsy Hx of section Hx of cholecystectomy Hx of colonoscopy Hx of esophagogastroduodenoscopy Hx of laparoscopy tubal block laparoscopy Family History Grandfather Diabetes mellitus maternal grandmother Malignant neoplasm maternal grandfather Malignant neoplasm Social History marital status: alcohol intake frequency: holiday/special occasion only MEDS/ALLERGIES Home Medications and Allergies Home Medications Medication Instructions Recorded Confirmed Type infliximab 100 mg intravenous 100 mg IV .q6w each 05/06/19 09/20/20 History solution acetaminophen [Tylenol] 650 mg PO Q4HP PRN 09/20/20 09/20/20 History blood sugar diagnostic #100 each 09/21/20 Rx blood-glucose meter #1 each 09/21/20 Rx cephalexin 500 mg PO QID #20 cap 09/21/20 Rx fluconazole 200 mg PO QDAY #5 tab 09/21/20 Rx insulin aspart U-100 See Protocol SUBCUT ACHS #15 ml 09/21/20 Rx MDD 40 lancets #100 each 09/21/20 Rx metformin 500 mg PO QDAY #30 tab 09/21/20 Rx insulin glargine [Lantus Solostar 10 unit SUB-Q BID #15 ml 09/22/20 Rx U-100 Insulin] pen needle, diabetic #100 ea 09/22/20 Rx Allergies Allergy/AdvReac Type Severity Reaction Status Date / Time gabapentin Allergy Unknown Other Verified 09/20/20 14:55 gluten Allergy Verified 09/21/20 11:55 meperidine [MEPERIDINE] AdvReac Intermediate Anxiety Verified 09/20/20 14:55 Physical Examination Vital Signs Vital signs: Temp Pulse Resp BP Pulse Ox 97.1 F 88 16 127/70 94 09/21/20 08:17 09/21/20 07:08 09/21/20 09:06 09/21/20 09:06 09/21/20 09:06 General physical appearance General physical exam: well developed, well nourished, no distress and other (Alert Cooperative. Answers questions. No neurological deficits.) Eyes Eye exam: PERRL and normal ocular movement ENT ENT exam: normal nares, normal mucosa and no congestion Head Head exam IM: Present atraumatic and normocephalic Neck Neck exam: no masses, trachea midline and no venous distension Cardiovascular Cardiovascular exam IM: Present normal rate and rhythm Respiratory Respiratory exam: normal respiratory effort and clear to auscultation Abdomen Abdomen: Present soft, non tender and bowel sounds Integumentary Integumentary: Present no rash and other (Folliculitis suprapubic region with localized inflammatory changes. H/O Needle aspiration yesterday. ) Neurologic Neurologic: Present normal coordination, normal sensation and other (No focal neurological deficits. Continent of urine and stools. ) Musculoskeletal Musculoskeletal: Present other (Did NOT see patient standing or ambulating. H/O Ankylosing Spondylitis of spine.) Psychiatric Psychiatric: Present oriented to time, oriented to person, oriented to place and speech is normal Results Labs Result diagrams: 09/22/20 04:59 09/21/20 10:19 Labs: Abnormal lab results 09/20/20 09/20/20 09/20/20 Range/Units 10:00 10:00 12:23 WBC 12.5 H (4.5-11.0) K/mcL RBC 5.49 H (4.00-5.20) M/mcL Hgb 15.3 H (12.0-15.0) g/dL MPV 11.4 H (7.4-10.4) fL Absolute Neutrophils 9.65 H (1.80-8.00) K/mcL POC Sodium 131 L (133-145) mEq/L Sodium 127 L (133-145) mmol/L Potassium (3.3-5.1) mmol/L Chloride 88 L (96-108) mmol/L Carbon Dioxide 16 L (22-30) mmol/L POC Total CO2 18 L 16 L (22-30) mmol/L Anion Gap 23.0 H (8.0-16.0) BUN (6-20) mg/dL Glucose 710 H* (70-105) mg/dL POC Glucose > 700 H* 425 H mg/dL Hemoglobin A1c (4.0-6.0) % Hgb Calcium (8.6-10.4) mg/dL Phosphorus (2.5-4.5) mg/dL C-Reactive Protein (0.03-0.80) mg/dL Beta-Hydroxybutyrate (<0.27) mmol/L Urine Appearance (Clear) Urine Glucose (UA) (Negative) mg/dL Urine Ketones (Negative) mg/dL Ur Leukocyte Esterase (Negative) /ug Urine RBC (0-3) /hpf Urine WBC (0-4) /hpf Urine Mucus (None) /hpf 09/20/20 09/20/20 09/20/20 Range/Units 12:23 14:30 15:31 WBC (4.5-11.0) K/mcL RBC (4.00-5.20) M/mcL Hgb (12.0-15.0) g/dL MPV (7.4-10.4) fL Absolute Neutrophils (1.80-8.00) K/mcL POC Sodium (133-145) mEq/L Sodium (133-145) mmol/L Potassium (3.3-5.1) mmol/L Chloride (96-108) mmol/L Carbon Dioxide 16 L (22-30) mmol/L POC Total CO2 (22-30) mmol/L Anion Gap 19.0 H (8.0-16.0) BUN (6-20) mg/dL Glucose 362 H (70-105) mg/dL POC Glucose mg/dL Hemoglobin A1c 13.4 H (4.0-6.0) % Hgb Calcium (8.6-10.4) mg/dL Phosphorus (2.5-4.5) mg/dL C-Reactive Protein 3.70 H (0.03-0.80) mg/dL Beta-Hydroxybutyrate 5.37 H (<0.27) mmol/L Urine Appearance Hazy A (Clear) Urine Glucose (UA) >=500 A (Negative) mg/dL Urine Ketones 80 A (Negative) mg/dL Ur Leukocyte Esterase 500 A (Negative) /ug Urine RBC 22 H (0-3) /hpf Urine WBC 31 H (0-4) /hpf Urine Mucus Few A (None) /hpf 09/20/20 09/20/20 09/21/20 Range/Units 17:53 21:20 01:52 WBC (4.5-11.0) K/mcL RBC (4.00-5.20) M/mcL Hgb (12.0-15.0) g/dL MPV (7.4-10.4) fL Absolute Neutrophils (1.80-8.00) K/mcL POC Sodium (133-145) mEq/L Sodium 132 L (133-145) mmol/L Potassium 3.2 L (3.3-5.1) mmol/L Chloride (96-108) mmol/L Carbon Dioxide 18 L 19 L 20 L (22-30) mmol/L POC Total CO2 (22-30) mmol/L Anion Gap (8.0-16.0) BUN (6-20) mg/dL Glucose 220 H 147 H 200 H (70-105) mg/dL POC Glucose mg/dL Hemoglobin A1c (4.0-6.0) % Hgb Calcium 8.4 L 8.2 L 7.9 L (8.6-10.4) mg/dL Phosphorus (2.5-4.5) mg/dL C-Reactive Protein (0.03-0.80) mg/dL Beta-Hydroxybutyrate (<0.27) mmol/L Urine Appearance (Clear) Urine Glucose (UA) (Negative) mg/dL Urine Ketones (Negative) mg/dL Ur Leukocyte Esterase (Negative) /ug Urine RBC (0-3) /hpf Urine WBC (0-4) /hpf Urine Mucus (None) /hpf 09/21/20 09/21/20 09/21/20 Range/Units 05:22 05:23 05:23 WBC 13.3 H (4.5-11.0) K/mcL RBC (4.00-5.20) M/mcL Hgb (12.0-15.0) g/dL MPV 11.1 H (7.4-10.4) fL Absolute Neutrophils (1.80-8.00) K/mcL POC Sodium (133-145) mEq/L Sodium 128 L (133-145) mmol/L Potassium (3.3-5.1) mmol/L Chloride (96-108) mmol/L Carbon Dioxide 16 L (22-30) mmol/L POC Total CO2 (22-30) mmol/L Anion Gap (8.0-16.0) BUN 5 L (6-20) mg/dL Glucose 296 H (70-105) mg/dL POC Glucose mg/dL Hemoglobin A1c (4.0-6.0) % Hgb Calcium 7.9 L (8.6-10.4) mg/dL Phosphorus 2.3 L (2.5-4.5) mg/dL C-Reactive Protein (0.03-0.80) mg/dL Beta-Hydroxybutyrate (<0.27) mmol/L Urine Appearance (Clear) Urine Glucose (UA) (Negative) mg/dL Urine Ketones (Negative) mg/dL Ur Leukocyte Esterase (Negative) /ug Urine RBC (0-3) /hpf Urine WBC (0-4) /hpf Urine Mucus (None) /hpf Diabetes panel 09/20/20 09/20/20 09/20/20 Range/Units 10:00 14:30 17:53 Sodium 127 L 135 137 (133-145) mmol/L Potassium 4.2 3.9 3.5 (3.3-5.1) mmol/L Chloride 88 L 100 104 (96-108) mmol/L Carbon Dioxide 16 L 16 L 18 L (22-30) mmol/L BUN 10 7 6 (6-20) mg/dL Creatinine 1.0 0.8 0.6 (0.6-1.1) mg/dL Glucose 710 H* 362 H 220 H (70-105) mg/dL Hemoglobin A1c 13.4 H (4.0-6.0) % Hgb Calcium 9.3 8.6 8.4 L (8.6-10.4) mg/dL 09/20/20 09/21/20 09/21/20 Range/Units 21:20 01:52 05:23 Sodium 137 132 L 128 L (133-145) mmol/L Potassium 3.2 L 3.3 3.3 (3.3-5.1) mmol/L Chloride 106 103 98 (96-108) mmol/L Carbon Dioxide 19 L 20 L 16 L (22-30) mmol/L BUN 6 6 5 L (6-20) mg/dL Creatinine 0.7 0.6 0.6 (0.6-1.1) mg/dL Glucose 147 H 200 H 296 H (70-105) mg/dL Hemoglobin A1c (4.0-6.0) % Hgb Calcium 8.2 L 7.9 L 7.9 L (8.6-10.4) mg/dL Calcium panel 09/20/20 09/20/20 09/20/20 Range/Units 10:00 14:30 17:53 Calcium 9.3 8.6 8.4 L (8.6-10.4) mg/dL Phosphorus (2.5-4.5) mg/dL 09/20/20 09/21/20 09/21/20 Range/Units 21:20 01:52 05:23 Calcium 8.2 L 7.9 L 7.9 L (8.6-10.4) mg/dL Phosphorus (2.5-4.5) mg/dL 09/21/20 Range/Units 05:23 Calcium (8.6-10.4) mg/dL Phosphorus 2.3 L (2.5-4.5) mg/dL Pituitary panel 09/20/20 09/20/20 09/20/20 Range/Units 10:00 14:30 17:53 Sodium 127 L 135 137 (133-145) mmol/L Potassium 4.2 3.9 3.5 (3.3-5.1) mmol/L Chloride 88 L 100 104 (96-108) mmol/L Carbon Dioxide 16 L 16 L 18 L (22-30) mmol/L BUN 10 7 6 (6-20) mg/dL Creatinine 1.0 0.8 0.6 (0.6-1.1) mg/dL Glucose 710 H* 362 H 220 H (70-105) mg/dL Calcium 9.3 8.6 8.4 L (8.6-10.4) mg/dL 09/20/20 09/21/20 09/21/20 Range/Units 21:20 01:52 05:23 Sodium 137 132 L 128 L (133-145) mmol/L Potassium 3.2 L 3.3 3.3 (3.3-5.1) mmol/L Chloride 106 103 98 (96-108) mmol/L Carbon Dioxide 19 L 20 L 16 L (22-30) mmol/L BUN 6 6 5 L (6-20) mg/dL Creatinine 0.7 0.6 0.6 (0.6-1.1) mg/dL Glucose 147 H 200 H 296 H (70-105) mg/dL Calcium 8.2 L 7.9 L 7.9 L (8.6-10.4) mg/dL Adrenal panel 09/20/20 09/20/20 09/20/20 Range/Units 10:00 14:30 17:53 Sodium 127 L 135 137 (133-145) mmol/L Potassium 4.2 3.9 3.5 (3.3-5.1) mmol/L Chloride 88 L 100 104 (96-108) mmol/L Carbon Dioxide 16 L 16 L 18 L (22-30) mmol/L BUN 10 7 6 (6-20) mg/dL Creatinine 1.0 0.8 0.6 (0.6-1.1) mg/dL Glucose 710 H* 362 H 220 H (70-105) mg/dL Calcium 9.3 8.6 8.4 L (8.6-10.4) mg/dL 09/20/20 09/21/20 09/21/20 Range/Units 21:20 01:52 05:23 Sodium 137 132 L 128 L (133-145) mmol/L Potassium 3.2 L 3.3 3.3 (3.3-5.1) mmol/L Chloride 106 103 98 (96-108) mmol/L Carbon Dioxide 19 L 20 L 16 L (22-30) mmol/L BUN 6 6 5 L (6-20) mg/dL Creatinine 0.7 0.6 0.6 (0.6-1.1) mg/dL Glucose 147 H 200 H 296 H (70-105) mg/dL Calcium 8.2 L 7.9 L 7.9 L (8.6-10.4) mg/dL All other labs normal. A/P Narrative A/P Narrative: Assessment: CSSSI / Folliculitis supra pubic hair. Uncontrolled DM and hyperosmolar state IMPROVED. Chronic immune suppression. On IV antibiotics. Plan: For local wound care ordered. Will follow patient during her hospitalization and later at clinic. Time Spent With Patient Time: Total time spent is greater than 50% in coordination of care (as documented) at patient's floor/unit and/or counseling patient: Total time spent with greater than 50% in coordination of care (as documented) at patient's floor/unit and/or counseling patient:: 25 - 35 minutes
[2020-09-21 11:22] LABS: Blood Urea Nitrogen 4 mg/dL (6-20); Carbon Dioxide 21 mmol/L (22-30); Chloride 102 mmol/L (96-108); Glomerular Filtration Rate 107; Glucose 201 mg/dL (70-105)
--- NOTE | 2020-09-21 13:16 | Internal Med Progress Note ---
SUBJECTIVE Subjective Patient information: Note initiated : 09/21/20 at 1:11 pm Service Date, if different from initiated Date: [] Patient: Amalia Harris a 50 y/o F admitted on 09/20/20 for blood sugar problem. Chief Complaint: [] Interval history: Ms. Harris is a 50 year old female with a history of ankylosing spondylitis on Remicade who presents to the emergency department for polydipsia, polyuria, dry mouth and generally feeling unwell for about 2 weeks. In the ED, the patient was found to have hyperglycemia with a serum glucose of 710. The patient also had metabolic acidosis with an anion gap of 23. She was given IV fluids and started on an insulin drip. The hospitalist were asked to admit the patient for further management. Further review showed that the patient has a pubic area of tenderness concerning for possible underlying abscess, she also has thrush. Patient denies fevers chills, no chest pain, no shortness of breath. EKG shows normal sinus rhythm. Chest x-ray does not show any infiltrates. 09/21 Overall improvement, anion gap closed overnight, transitioned off insulin drip to Lantus and SSI-medium. Last night aspirated the pubic abscess, gram stain shows gram positive cocci in pairs and chains and moderate budding yeast with pseudohyphae. Now on Vancomycin per pharmacy and IV Diflucan due to immunosuppre ssed status. Discussed with Dr. Otto, he will see the patient for the abscess. 09/22 Constitutional Vitals: Vital Signs Temp Pulse Resp BP Pulse Ox 97.1 F 90 18 136/75 94 09/21/20 12:01 09/21/20 11:25 09/21/20 13:01 09/21/20 13:01 09/21/20 13:01 Period Temp Pulse Resp BP Sys/Quintana Pulse Ox Last 24 Hr 97.1 F-97.8 F 81-104 13-27 94-136/52-78 92-100 Intake and Output 09/20/20 09/21/20 09/21/20 21:59 05:59 13:59 Intake Total 2057 819 1296 Output Total 475 550 525 Balance 1582 269 771 Weight 92.215 kg Intake & Output: Intake & Output 09/20/20 09/21/20 09/21/20 21:59 05:59 13:59 Intake Total 2057 819 1296 Output Total 475 550 525 Balance 1582 269 771 Weight 92.215 kg Intake: IV 2613 218 3644 Sodium Chloride 0.9% 1,000 ml @ 1306 125 mls/hr IV .Q8H JACQUE Rx#: [id number] Dextrose 5%-1/2Ns IV Solution 1 238 762 496 ,000 ml @ 125 mls/hr IV .Q8H JACQUE Rx#:[id number] HumuLIN R 50 UNIT In Sodium 73 57 0 Chloride 0.9% 99.5 ml @ 4 UNIT/ HR 8 mls/hr IV DUR JACQUE Rx#: [id number] Vancomycin 1,500 mg In Sodium 500 Chloride 0.9% 500 ml @ 333.3 mls/hr IV Q12H JACQUE Rx#: [id number] Oral 440 100 Output: Void Amount 475 550 525 Other: Meal Dinner Breakfast Percent of Meal Consumed 50% 75% Feeding Ability Independent Urine Appearance Cloudy Sediment Urine Color Dark Yellow Dark Yellow Dark Yellow Urine Odor Normal Normal # Voids 1 Exam: General: Alert, Awake, No acute Distress Eyes/N/T: EOMI, Head/Neck: neck supple, CV: RRR, No murmurs, Pulm: Clear b/l, no wheezing/rhonchi/rales Abd: soft, Positive for suprapubic erythema and tenderness, minimal fluctuance noted., +BS x4 Ext: no clubbing/cyanosis/edema Neuro: Alert, no focal deficits, moves all extremities, Skin: warm/dry OBJ DATA Labs CBC & Chem 7: 09/21/20 05:22 09/21/20 10:19 Labs: Abnormal Lab Results 09/21/20 09/21/20 09/21/20 10:19 05:23 05:23 WBC RBC Hgb MPV Absolute Neutrophils POC Sodium Sodium 131 L 128 L Potassium Chloride Carbon Dioxide 21 L 16 L POC Total CO2 Anion Gap BUN 4 L 5 L Glucose 201 H 296 H POC Glucose Hemoglobin A1c Calcium 8.0 L 7.9 L Phosphorus 2.3 L C-Reactive Protein Beta-Hydroxybutyrate Urine Appearance Urine Glucose (UA) Urine Ketones Ur Leukocyte Esterase Urine RBC Urine WBC Urine Mucus 09/21/20 09/21/20 09/20/20 05:22 01:52 21:20 WBC 13.3 H RBC Hgb MPV 11.1 H Absolute Neutrophils POC Sodium Sodium 132 L Potassium 3.2 L Chloride Carbon Dioxide 20 L 19 L POC Total CO2 Anion Gap BUN Glucose 200 H 147 H POC Glucose Hemoglobin A1c Calcium 7.9 L 8.2 L Phosphorus C-Reactive Protein Beta-Hydroxybutyrate Urine Appearance Urine Glucose (UA) Urine Ketones Ur Leukocyte Esterase Urine RBC Urine WBC Urine Mucus 09/20/20 09/20/20 09/20/20 17:53 15:31 14:30 WBC RBC Hgb MPV Absolute Neutrophils POC Sodium Sodium Potassium Chloride Carbon Dioxide 18 L 16 L POC Total CO2 Anion Gap 19.0 H BUN Glucose 220 H 362 H POC Glucose Hemoglobin A1c 13.4 H Calcium 8.4 L Phosphorus C-Reactive Protein 3.70 H Beta-Hydroxybutyrate Urine Appearance Hazy A Urine Glucose (UA) >=500 A Urine Ketones 80 A Ur Leukocyte Esterase 500 A Urine RBC 22 H Urine WBC 31 H Urine Mucus Few A 09/20/20 09/20/20 09/20/20 12:23 12:23 10:00 WBC RBC Hgb MPV Absolute Neutrophils POC Sodium 131 L Sodium 127 L Potassium Chloride 88 L Carbon Dioxide 16 L POC Total CO2 16 L 18 L Anion Gap 23.0 H BUN Glucose 710 H* POC Glucose 425 H > 700 H* Hemoglobin A1c Calcium Phosphorus C-Reactive Protein Beta-Hydroxybutyrate 5.37 H Urine Appearance Urine Glucose (UA) Urine Ketones Ur Leukocyte Esterase Urine RBC Urine WBC Urine Mucus 09/20/20 10:00 WBC 12.5 H RBC 5.49 H Hgb 15.3 H MPV 11.4 H Absolute Neutrophils 9.65 H POC Sodium Sodium Potassium Chloride Carbon Dioxide POC Total CO2 Anion Gap BUN Glucose POC Glucose Hemoglobin A1c Calcium Phosphorus C-Reactive Protein Beta-Hydroxybutyrate Urine Appearance Urine Glucose (UA) Urine Ketones Ur Leukocyte Esterase Urine RBC Urine WBC Urine Mucus Meds: Medications Acetaminophen (Acetaminophen 325 Mg Tablet) 325 mg PO BIDP PRN PRN Reason: Pain Diagnostic Test (Pha) (Accu-Chek 1 Each Strip) 1 each FS Q2 [facility] Last Admin: 09/21/20 11:50 Dose: 1 each Documented by: Enoxaparin Sodium (Enoxaparin 40 Mg/0.4 Ml Syringe) 40 mg SQ DAILY [facility] Last Admin: 09/21/20 08:01 Dose: 40 mg Documented by: Fluconazole (Diflucan) 400 mg in 200 mls @ 100 mls/hr IV DAILY [facility] Last Infusion: 09/21/20 11:16 Dose: Infused Documented by: Vancomycin HCl 1,500 mg/ (Sodium Chloride) 500 mls @ 333.3 mls/hr IV Q12H [facility] Last Infusion: 09/21/20 11:16 Dose: Infused Documented by: Sodium Chloride (Sodium Chloride 0.9%) 1,000 mls @ 75 mls/hr IV .[id number] [facility] Last Admin: 09/21/20 10:01 Dose: 75 mls/hr Documented by: Insulin Glargine (Insulin Glargine, Human 1 Unit/0.01 Ml) 10 unit SQ HS [facility] Last Admin: 09/20/20 21:37 Dose: 10 unit Documented by: Insulin Human Lispro (Insulin Lispro 1 Unit/0.01 Ml Unit) 0 unit SQ Q2 [facility]; Protocol Last Admin: 09/21/20 11:51 Dose: 2 unit Documented by: Lactulose (Lactulose 20 Gm/30 Ml Oral.Laurel) 10 gm PO DAILYP PRN PRN Reason: Constipation Ondansetron HCl (Ondansetron 4 Mg/2 Ml Vial) 4 mg IV Q4HP PRN; Protocol PRN Reason: Nausea And Vomiting Potassium Chloride (Potassium Chloride 20 Meq Tablet) 40 meq PO BIDCC [facility] Stop: 09/21/20 17:31 Last Admin: 09/21/20 08:01 Dose: 40 meq Documented by: Senna (Sennosides 1 Tablet) 2 tab PO HSP PRN PRN Reason: Constipation Sodium Chloride (0.9 % Sodium Chloride 10 Ml Syringe) 10 ml IV Q8 [facility] Last Admin: 09/21/20 05:58 Dose: 10 ml Documented by: Vancomycin HCl (Vancomycin Per Pharmacy) 1 order IV UD [facility]; Protocol A/P Narrative A/P Narrative: A: #Diabetes mellitus probably type II (new diagnosis) -Hgb A1C 13.4 #Resolved diabetic ketoacidosis #Pubic abscess: -gm stain: gram positive cocci in pairs and chains and yeast -1.2 cm complex fluid collection on US #Oral pharyngeal candidiasis #Ankylosing spondylitis on Remicade #Immunosuppression d/t Remicade and poorly controlled DM #Obesity BMI 34 Plan -Lantus and SSI-med, add prandial insulin after response to SSI established. Likely increase Lantus before discharge with follow up and eventually could possibly transition to oral DM therapy if patient seems more likely to have type 2 than type 1 diabetes mellitus. -IV fluid with NS. -Follow aspirate culture and blood cultures -Vancomycin IV per Rx and Diflucan for abscess -Dr. Trinh following for abscess, f/u in office -clothing busheler consult -LISA and Islet cell antibodies, (likely send out labs) for possible type 1 DM d/t DKA however body habitus suggests type 2 DM. -DVT ppx: lovenox SQ -Disposition: home on basal/bolus insulin regimen with PCP follow up for new diagnosis of diabetes mellitus, follow up autoantibodies. Code status: Supervisor In Charge Spent With Patient Time: Total time spent is greater than 50% in coordination of care (as documented) at patient's floor/unit and/or counseling patient: QUALITY Stroke Symptom Onset Unknown: No
--- NOTE | 2020-09-21 13:18 | Discharge Summary ---
Discharge Provider Provider Patient information: Note initiated : 09/21/20 at 1:17 pm Service Date, if different from initiated Date: [] Patient: Amalia Harris 50 y/o F admitted on 09/20/20 for blood sugar problem. Chief Complaint: [] Date of admission: 09/20/20 13:37 Discharge date: 09/22/20 Primary care physician: Ivelisse Husain Consults: 09/20/20 Consult to Physician [CONS] Stat Comment: Consulting Provider: Reginald Rothman Reason For Exam: Physician to Consult 09/21/20 08:08 Consult to Physician [CONS] Routine Comment: Consulting Provider: Marvin Trinh Reason For Exam: Physician to Consult Discharge Meds Discharge Medications Home Medications infliximab 100 mg intravenous solution 100 mg IV .q6w each 05/06/19 [History Confirmed 09/20/20 Last Taken 09/14/20 09:00] acetaminophen [Tylenol] 650 mg PO Q4HP PRN 09/20/20 [History Confirmed 09/20/20 Last Taken Unknown] blood sugar diagnostic #100 each 09/21/20 [Rx Last Taken Unknown] blood-glucose meter #1 each 09/21/20 [Rx Last Taken Unknown] cephalexin 500 mg PO QID #20 cap 09/21/20 [Rx Last Taken Unknown] fluconazole 200 mg PO QDAY #5 tab 09/21/20 [Rx Last Taken Unknown] insulin aspart U-100 See Protocol SUBCUT ACHS #15 ml MDD 40 09/21/20 [Rx Last Taken Unknown] insulin glargine [Lantus Solostar U-100 Insulin] 10 unit SUB-Q QDAY #3 ml 09/21/20 [Rx Last Taken Unknown] lancets #100 each 09/21/20 [Rx Last Taken Unknown] metformin 500 mg PO QDAY #30 tab 09/21/20 [Rx Last Taken Unknown] pen needle, diabetic #100 ea 09/22/20 [Rx Last Taken Unknown] COURSE Hospital Course Hospital course: Interval history: Ms. Harris is a 50 year old female with a history of ankylosing spondylitis on Remicade who presents to the emergency department for polydipsia, polyuria, dry mouth and generally feeling unwell for about 2 weeks. In the ED, the patient was found to have hyperglycemia with a serum glucose of 710. The patient also had metabolic acidosis with an anion gap of 23. She was given IV fluids and started on an insulin drip. The hospitalist were asked to admit the patient for further management. Further review showed that the patient has a pubic area of tenderness concerning for possible underlying abscess, she also has thrush. Patient denies fevers chills, no chest pain, no shortness of breath. EKG shows normal sinus rhythm. Chest x-ray does not show any infiltrates. 09/21 Overall improvement, anion gap closed overnight, transitioned off insulin drip to Lantus and SSI-medium. Last night aspirated the pubic abscess, gram stain hansa ws gram positive cocci in pairs and chains and moderate budding yeast with pseudohyphae. Now on Vancomycin per pharmacy and IV Diflucan due to immunosuppressed status. Discussed with Dr. Otto, he will see the patient for the abscess. 09/22 Patient doing well. No new complaints. Titrating up insulin. Instructed her that she will go home on a sliding scale insulin and for her to keep a log of all her insulin dosing and that her PCP can adjust her prandial insulin and stop the sliding scale. A: #Diabetes mellitus probably type II (new diagnosis) -Hgb A1C 13.4 #Resolved diabetic ketoacidosis #Pubic abscess: -gm stain: gram positive cocci in pairs and chains and yeast -1.2 cm complex fluid collection on US #Oral pharyngeal candidiasis #Ankylosing spondylitis on Remicade #Immunosuppression d/t Remicade and poorly controlled DM #Obesity BMI 34 Discharge diagnosis: New diabetes pubic abscess candidiasis DKA Secondary discharge diagnosis: Ankylosing spondylitis obesity Time Spent with Patient Time attestation: Total time spent providing and/or coordinating discharge services: Time spent: Greater than 30 minutes EXAM Constitutional Vitals: Temp Pulse Resp BP Pulse Ox 97.1 F 90 18 136/75 94 09/21/20 12:01 09/21/20 11:25 09/21/20 13:01 09/21/20 13:01 09/21/20 13:01 Discharge Data Data Completed and Pending Labs on day of discharge: Labs from last 24 hours 09/21/20 09/21/20 09/21/20 10:19 10:19 05:23 WBC RBC Hgb Hct MCV MCH MCHC RDW Plt Count MPV Seg Neutrophils % Band Neutrophils % Lymphocytes % Monocytes % (Manual) Basophils % (Manual) Platelet Estimate RBC Morphology Sodium 131 L Potassium 3.3 Chloride 102 Carbon Dioxide 21 L Anion Gap 8.0 POC BUN BUN 4 L Creatinine 0.6 GFR Calculation 107 Glucose 201 H Hemoglobin A1c Estim Average Glucose Calcium 8.0 L POC WB Ioniz Calcium Phosphorus 2.3 L Magnesium 1.7 C-Reactive Protein Beta-Hydroxybutyrate Procalcitonin Urine Color Urine Appearance Urine pH Ur Specific [place] Urine Protein Urine Glucose (UA) Urine Ketones Urine Occult Blood Urine Nitrate Urine Bilirubin Urine Urobilinogen Ur Leukocyte Esterase Urine RBC Urine WBC Ur Squamous Epith Cells Urine Bacteria Urine Mucus Ur Culture Indicated? Islet Cell Ab Screen Pending Islet Cell Ab Titer Pending LISA Antibody Pending 09/21/20 09/21/20 09/21/20 05:23 05:22 01:52 WBC 13.3 H RBC 4.70 Hgb 12.8 Hct 38.8 MCV 82.6 MCH 27.2 MCHC 33.0 RDW 13.1 Plt Count 220 MPV 11.1 H Seg Neutrophils % 70 Band Neutrophils % 10 Lymphocytes % 15 Monocytes % (Manual) 4 Basophils % (Manual) 1 Platelet Estimate Normal RBC Morphology Normal Sodium 128 L 132 L Potassium 3.3 3.3 Chloride 98 103 Carbon Dioxide 16 L 20 L Anion Gap 14.0 9.0 POC BUN BUN 5 L 6 Creatinine 0.6 0.6 GFR Calculation 107 107 Glucose 296 H 200 H Hemoglobin A1c Estim Average Glucose Calcium 7.9 L 7.9 L POC WB Ioniz Calcium Phosphorus Magnesium C-Reactive Protein Beta-Hydroxybutyrate Procalcitonin Urine Color Urine Appearance Urine pH Ur Specific [place] Urine Protein Urine Glucose (UA) Urine Ketones Urine Occult Blood Urine Nitrate Urine Bilirubin Urine Urobilinogen Ur Leukocyte Esterase Urine RBC Urine WBC Ur Squamous Epith Cells Urine Bacteria Urine Mucus Ur Culture Indicated? Islet Cell Ab Screen Islet Cell Ab Titer LISA Antibody 09/20/20 09/20/20 09/20/20 21:20 17:53 15:31 WBC RBC Hgb Hct MCV MCH MCHC RDW Plt Count MPV Seg Neutrophils % Band Neutrophils % Lymphocytes % Monocytes % (Manual) Basophils % (Manual) Platelet Estimate RBC Morphology Sodium 137 137 Potassium 3.2 L 3.5 Chloride 106 104 Carbon Dioxide 19 L 18 L Anion Gap 12.0 15.0 POC BUN BUN 6 6 Creatinine 0.7 0.6 GFR Calculation 102 107 Glucose 147 H 220 H Hemoglobin A1c Estim Average Glucose Calcium 8.2 L 8.4 L POC WB Ioniz Calcium Phosphorus Magnesium C-Reactive Protein Beta-Hydroxybutyrate Procalcitonin Urine Color Yellow Urine Appearance Hazy A Urine pH 5.0 Ur Specific [place] 1.029 Urine Protein Negative Urine Glucose (UA) >=500 A Urine Ketones 80 A Urine Occult Blood 0.03 Urine Nitrate Negative Urine Bilirubin Negative Urine Urobilinogen Negative Ur Leukocyte Esterase 500 A Urine RBC 22 H Urine WBC 31 H Ur Squamous Epith Cells < 1 Urine Bacteria None Urine Mucus Few A Ur Culture Indicated? yes Islet Cell Ab Screen Islet Cell Ab Titer LISA Antibody 09/20/20 09/20/20 09/20/20 14:30 14:30 12:23 WBC RBC Hgb Hct MCV MCH MCHC RDW Plt Count MPV Seg Neutrophils % Band Neutrophils % Lymphocytes % Monocytes % (Manual) Basophils % (Manual) Platelet Estimate RBC Morphology Sodium 135 Potassium 3.9 Chloride 100 Carbon Dioxide 16 L Anion Gap 19.0 H POC BUN BUN 7 Creatinine 0.8 GFR Calculation 87 Glucose 362 H Hemoglobin A1c 13.4 H Estim Average Glucose 338 Calcium 8.6 POC WB Ioniz Calcium Phosphorus Magnesium C-Reactive Protein 3.70 H Beta-Hydroxybutyrate 5.37 H Procalcitonin 0.09 Urine Color Urine Appearance Urine pH Ur Specific [place] Urine Protein Urine Glucose (UA) Urine Ketones Urine Occult Blood Urine Nitrate Urine Bilirubin Urine Urobilinogen Ur Leukocyte Esterase Urine RBC Urine WBC Ur Squamous Epith Cells Urine Bacteria Urine Mucus Ur Culture Indicated? Islet Cell Ab Screen Islet Cell Ab Titer LISA Antibody 09/20/20 10:00 WBC RBC Hgb Hct MCV MCH MCHC RDW Plt Count MPV Seg Neutrophils % Band Neutrophils % Lymphocytes % Monocytes % (Manual) Basophils % (Manual) Platelet Estimate RBC Morphology Sodium Potassium Chloride Carbon Dioxide Anion Gap POC BUN 10 BUN Creatinine GFR Calculation Glucose Hemoglobin A1c Estim Average Glucose Calcium POC WB Ioniz Calcium 1.20 Phosphorus Magnesium C-Reactive Protein Beta-Hydroxybutyrate Procalcitonin Urine Color Urine Appearance Urine pH Ur Specific [place] Urine Protein Urine Glucose (UA) Urine Ketones Urine Occult Blood Urine Nitrate Urine Bilirubin Urine Urobilinogen Ur Leukocyte Esterase Urine RBC Urine WBC Ur Squamous Epith Cells Urine Bacteria Urine Mucus Ur Culture Indicated? Islet Cell Ab Screen Islet Cell Ab Titer LISA Antibody Preliminary micro results at discharge 09/20/20 15:31 Urine Culture - Preliminary Urine - Clean Void Mid-Stream Strep agalactiae - (group b) 09/19/20 21:10 Gram Stain - Preliminary Aspirate - Groin Discharge Plan Patient/Caregiver Discharge Instructions Activity: increase activity as tolerated Diet: Consistent Carbohydrate Instructions: Metformin (By mouth), Cyst (ED) Activity Restrictions/Additional Instructions: for PCP: Follow-up send out labs, autoantibodies. pt to keep log of all blood glucose readings and bring to pcp Prescriptions: New (DME) blood sugar diagnostic Strip See Rx Instructions .ROUTE .MEDSUPPLY Qty: 100 RF: 0 (DME) blood-glucose meter Kit See Rx Instructions .ROUTE .MEDSUPPLY Qty: 1 RF: 0 insulin aspart U-100 100 unit/mL (3 mL) insulin pen See Protocol unit subcut ACHS MDD 40 Qty: 15 RF: 0 (DME) lancets Misc See Rx Instructions .ROUTE .MEDSUPPLY Qty: 100 RF: 0 Lantus Solostar U-100 Insulin 100 unit/mL (3 mL) insulin pen 10 unit SUB-Q QDAY Qty: 3 RF: 0 metformin 500 mg tablet 500 mg PO QDAY Qty: 30 RF: 0 cephalexin 500 mg capsule 500 mg PO QID Qty: 20 RF: 0 fluconazole 200 mg tablet 200 mg PO QDAY Qty: 5 RF: 0 (DME) pen needle, diabetic 30 gauge x 5/16" needle See Rx Instructions .ROUTE .MEDSUPPLY Qty: 100 RF: 0 Continued Remicade 100 mg recon soln 100 mg IV .q6w RF: 0 acetaminophen [Tylenol] 325 mg Capsule 650 mg PO Q4HP PRN (Reason: Pain) RF: 0 Follow Up Plan Follow up with: Ivelisse Husain MD [Primary Care Provider] - Marvin Trinh MD [Physician] - Patient Disposition: Home, Self-Care Prognosis: Fair Overall status at discharge: patient is progressing back to baseline
[2020-09-21] MEDS: metFORMIN 500 MG TAB.XL.24H PO SCH (14:03)
[2020-09-21] MEDS: INSULIN GLARGINE, HUMAN 1 UNIT/0.01 ML SQ SCH (20:31)
[2020-09-22] MEDS: INSULIN LISPRO 1 UNIT/0.01 ML UNIT SQ SCH ×4 (00:02→12:13)
[2020-09-22] MEDS: 0.9 % SODIUM CHLORIDE 10 ML SYRINGE IV SCH (05:33)
[2020-09-22 06:14] LABS: Hematocrit 35.5 % (36.0-48.0); Hemoglobin 12.3 g/dL (12.0-15.0); Mean Cell Volume 81.8 fL (80.0-100.0); Mean Corpuscular HGB Conc 34.6 g/dL (31.0-36.0); Mean Platelet Volume 11.2 fL (7.4-10.4); Platelet Count 201 K/mcL (140-440); RBC 4.34 M/mcL (4.00-5.20); Red Cell Distribution Width 13.2 % (11.5-14.5); WBC 7.7 K/mcL (4.5-11.0)
[2020-09-22 07:21] LABS: Band Neutrophils % 2 % (0-10); Eosinophils % (Manual) 5 % (0-7); Lymphocytes % 25 % (15-49); Monocytes % (Manual) 4 % (1-12); Platelet Estimate NORMAL (Normal); RBC Morphology NORMAL (Normal); Reactive Lymphocytes 2 % (0-2); Segmented Neutrophils % 62 % (38-78)
[2020-09-22] MEDS: metFORMIN 500 MG TAB.XL.24H PO SCH (08:47)
[2020-09-22] MEDS ORDERED: INSULIN GLARGINE, HUMAN 1 UNIT/0.01 ML SQ SCH (09:00)
[2020-09-22] MEDS: ENOXAPARIN 40 MG/0.4 ML SYRINGE SQ SCH (09:00)
[2020-09-22] MEDS: VANCOMYCIN 1,500 MG in 0.9 % SODIUM CHLORIDE 500 ML IV SCH (10:12)
[2020-09-22] MEDS: FLUCONAZOLE 400 MG/200 ML BAG IV SCH (10:46)
[2020-09-22] MEDS: 0.9 % SODIUM CHLORIDE 1,000 ML IV SCH (12:13)
[2020-09-24 18:16] LABS: GLUTAMIC ACID DECARBOXYLASE AB < 5.0 IU/mL (<5)
== END 2020-09-22 13:45 | disposition home or self-care (01) | DRG 638 ==
LOC: ED 09:28 → ICU 13:37
PROVIDERS: ADMIT Internal Medicine; ATTEND Internal Medicine